=== PATIENT | female | born 1950 | race Caucasian/White ===

== ENCOUNTER 2016-12-19 11:10 | Emergency (ER) | payer MEDICARE, BC ==
--- NOTE | 2016-12-19 13:01 | RAD ---
INDICATION: Fifth metacarpal hand pain after a fall COMPARISON: None. TECHNIQUE: 4 views of the left hand were obtained. FINDINGS: Depicted best on the AP view of the hand, there is an obliquely oriented fracture line at the proximal diaphysis of the left fifth metacarpal. Remaining visualized bones are intact and appropriately aligned. IMPRESSION: Nondisplaced fracture of the left fifth metacarpal.
[2016-12-19] MEDS ORDERED: Ibuprofen TAB* 400 MG PO ONE (14:56)
--- NOTE | 2016-12-19 14:58 | ED ---
I, Oh,Marjan, scribed for Kiera Ward MD on 12/19/16 at 1429 . Upper Extremity Pain - HPI Summary HPI Summary: This 66 y/o female presents to ED for LUE #5 digit pain since 2 days ago after slipping and falling in hotel shower. Movement makes the pain worse. PT also reports difficulty removing a ring due to swelling on LUE hand. PMHx includes well controlled HTN. FHx is positive for HTN. Pt is nonsmoker and nondrinker. She lives with her . Primary care involves Dr. Dunbar. - History of Current Complaint Chief Complaint: EDExtremityUpper Stated Complaint: LT HAND INJURY Time Seen by Provider: 12/19/16 13:58 Hx Obtained From: Patient, Medical Records Mechanism Of Injury: Blunt Trauma, Fall From A Standing Position Onset/Duration: Started Days Ago, Traumatic, Still Present Timing: Constant Pain Location: Finger - LUE #5 digit Character: Dull Aggravating Factor(s): Movement Alleviating Factor(s): Nothing Associated Signs & Symptoms: Positive: Negative - Allergies/Home Medications Allergies/Adverse Reactions: Allergies Allergy/AdvReac Type Severity Reaction Status Date / Time No Known Allergies Allergy Verified 12/19/16 13:57 PMH/Surg Hx/FS Hx/Imm Hx Cardiovascular History: Reports: Hx Hypertension - well controlled with medications Musculoskeletal History: Denies: Hx Rheumatoid Arthritis, Hx Osteoporosis - Cancer History Hx Chemotherapy: No Hx Radiation Therapy: No Infectious Disease History: Denies: Traveled Outside the [place] in Last 30 Days - Family History Known Family History: Positive: Hypertension - Social History Occupation: Retired Alcohol Use: Occasionally Hx Substance Use: No Substance Use Type: Reports: None Hx Tobacco Use: No Smoking Status (MU): Never Smoked Tobacco Review of Systems Negative: Fever Positive: Other - LUE #5 digit pain All Other Systems Reviewed And Are Negative: Yes Physical Exam Triage Information Reviewed: Yes Vital Signs On Initial Exam: Initial Vitals Temp Pulse Resp BP Pulse Ox 98.1 F 92 18 183/81 96 12/19/16 11:22 12/19/16 11:22 12/19/16 11:22 12/19/16 11:22 12/19/16 11:22 Vital Signs Reviewed: Yes Appearance: Positive: Well-Appearing, No Pain Distress Skin: Positive: Warm, Skin Color Reflects Adequate Perfusion, Dry Eyes: Positive: EOMI, HOLA Neck: Positive: Supple, Nontender Respiratory/Lung Sounds: Positive: Clear to Auscultation, Breath Sounds Present Cardiovascular: Positive: RRR, Pulses are Symmetrical in both Upper and Lower Extremities Abdomen Description: Positive: Nontender, Soft Musculoskeletal: Positive: Other - Tenderness to #5 metacarpal -- neurovascularly intact Neurological: Positive: Sensory/Motor Intact, Alert, Oriented to Person Place, Time Psychiatric: Positive: Affect/Mood Appropriate AVPU Assessment: Alert Procedures - Splinting Hand-Made Type: orthoglass Splint: ulnar Pre-Proc Neuro Vasc Exam: normal Post-Proc Neuro Vasc Exam: normal Diagnostics - Vital Signs Vital Signs Temp Pulse Resp BP Pulse Ox 12/19/16 11:22 98.1 F 92 18 183/81 96 - Laboratory Lab Statement: Any lab studies that have been ordered have been reviewed, and results considered in the medical decision making process. - Radiology Hand X-ray Xray Interpretation: Positive (See Comments) - Nondisplaced fracture of left fifth metacarpal Radiology Interpretation Completed By: Radiologist Re-Evaluation - Re-Evaluation First Eval Re-Evaluation Time: 14:39 Comment: MD in room to remove ring from # digit. Successful. Course/Dx - Course Course Of Treatment: pt fell in shower denies any head trauma only suffered injury to left 5th digit (she is left handed). her wedding rings had to be removed from the ring finger using an elastic band wound around digit to pull the ring over. both fingers nvi - Diagnoses Provider Diagnoses: Metacarpal bone fracture Discharge - Discharge Plan Condition: Stable Disposition: HOME Patient Education Materials: Finger Fracture (ED), Ibuprofen (By mouth) Referrals: Monique Dunbar MD [Primary Care Provider] - 2 Days The documentation as recorded by the Melvin hutchinson Soohyun accurately reflects the service I personally performed and the decisions made by me, Kiera Ward MD.
[2016-12-19 15:14] VITALS: BP 162/80
== END 2016-12-19 15:13 | disposition home or self-care (01) ==
LOC: ED 11:10
DX: S62.307A Unspecified fracture of fifth metacarpal bone, left hand, initial encounter for closed fracture (principal); W01.0XXA Fall on same level from slipping, tripping and stumbling without subsequent striking against object, initial encounter; Y93.9 Activity, unspecified; Y92.9 Unspecified place or not applicable
CPT/HCPCS: 99281